=== PATIENT | male | born 1985 | race Caucasian/White ===

== ENCOUNTER 2022-07-05 17:28 | Emergency (ER) | payer OTHER, BC ==
[2022-07-05 17:40] VITALS: BP 135/90; PULSE 77; RESP 20; TEMP 98.3
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
--- NOTE | 2022-07-05 18:43 | XR ---
EXAMINATION TYPE: XR shoulder complete RT DATE OF EXAM: 07/05/2022 6:35 PM INDICATION: Patient age:Male; 36 years old; Reason for study: pain; COMPARISON: Chest radiograph same day TECHNIQUE: The right shoulder was examined in AP, internally rotated and scapular Y projections. FINDINGS/IMPRESSION: Elevated right clavicle with respect to the acromion compatible with acromial clavicular joint separa tion. No evidence of fracture. Degeneration changes of the humeral head with osteophyte formation. No evidence of dislocation of the glenohumeral joint.
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
[2022-07-05] MEDS ORDERED: Acetaminophen-Codeine 300-30mg TAB PO STA (19:39)
[2022-07-05] MEDS ORDERED: HYDROmorphone 1 MG/ML 1 ML SYRINGE IM STA (19:39)
[2022-07-05] MEDS ORDERED: IBUPROFEN 600 MG STARTER PACK 4 TAB BTL PO STA (19:39)
[2022-07-05] MEDS ORDERED: ACET/COD 300 MG/30 MG STARTER PACK 6 TAB BTL PO STA (19:39)
[2022-07-05] MEDS ORDERED: IBUPROFEN 800 MG TAB PO STA (19:39)
== END 2022-07-05 20:45 | disposition home or self-care (01) ==
LOC: EC 17:28
DX: S43.101A Unspecified dislocation of right acromioclavicular joint, initial encounter (principal); V86.56XA Driver of dirt bike or motor/cross bike injured in nontraffic accident, initial encounter; Y92.411 Interstate highway as the place of occurrence of the external cause
CPT/HCPCS: 73030; 71045; 99284; 96372; J1170